=== PATIENT | female | born 1950 | race American Indian/Alaskan Native ===

== ENCOUNTER 2018-12-06 12:45 | Observation (INO) | payer MEDICARE ==
--- NOTE | 2018-12-06 13:15 | Emergency Department Report ---
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 Due to findings the following was ordered: labs, EKG ED Disposition for MSE Condition: Stable
[2018-12-06 13:36] LABS: Basophils % (Auto) 0.6 % (0.0-1.8); Eosinophils # (Auto) 0.1 K/mm3 (0.0-0.4); Eosinophils % (Auto) 1.5 % (0.0-4.3); Hematocrit 32.3 % (30.3-42.9); Hemoglobin 10.2 gm/dl (10.1-14.3); Lymphocytes # (Auto) 0.9 K/mm3 (1.2-5.4); Lymphocytes % (Auto) 14.9 % (13.4-35.0); Mean Corpuscular HGB Conc 32 % (30-34); Mean Corpuscular Volume 95 fl (79-97); Monocytes # (Auto) 0.3 K/mm3 (0.0-0.8); Monocytes % (Auto) 5.6 % (0.0-7.3); Platelet Count 189 K/mm3 (140-440); Red Blood Count 3.42 M/mm3 (3.65-5.03); Red Cell Distribution Width 19.3 % (13.2-15.2)
[2018-12-06 13:59] LABS: Alanine Aminotransferase 14 units/L (7-56); Albumin 3.7 g/dL (3.9-5); BUN/Creatinine Ratio 19; Blood Urea Nitrogen 41 mg/dL (7-17); Calcium 6.7 mg/dL (8.4-10.2); Hemolysis Index 7
[2018-12-06] MEDS ORDERED: MAGNESIUM SULFATE 1 GM in NACL 0.9% 50 ML IV ONE (15:37)
[2018-12-06] MEDS ORDERED: MAGNESIUM SULFATE 2GM/50ML 2 GM/50 ML BAG IV ONE (15:37)
--- NOTE | 2018-12-06 15:38 | Emergency Department Report ---
ED General Adult HPI - General Chief complaint: Recheck/Abnormal Lab/Rx Stated complaint: KIDNEY LEVELS DROPPING PER DR Time Seen by Provider: 12/06/18 13:11 Source: patient, RN notes reviewed Mode of arrival: Ambulatory (patient walks with a walker) Limitations: Other (patient is a poor historian) - History of Present Illness Initial comments: This is a 68-year-old female who is not known to this provider previously, who was sent to the emergency room by her sustainability officer, Dr. Zuluaga, for direct admission. Her past medical history includes reported stroke, and heart disease. The patient has no complaints at this time. In the emergency room, patient found to have a creatinine of 2.2, and is found to be hypomagnesemic, and hypocalcemic. Her aforementioned sustainability officer is contacted, who reiterates that she recommends admission. She reports that her group has attempted outpatient management for the aforementioned patient electrolyte derangement, with no improvement with outpatient therapy. The Hospital physician was contacted, and Dr. Homar Stevens is going to accept the patient to the medical service for new onset renal insufficiency, hypo- magnesium, hypocalcemia. -: unknown Severity scale (0 -10): 0 Quality: other Consistency: other Improves with: other Worsens with: other Associated Symptoms: weakness - Related Data Allergies Allergy/AdvReac Type Severity Reaction Status Date / Time No Known Allergies Allergy Verified 12/06/18 12:46 ED Review of Systems ROS: Stated complaint: KIDNEY LEVELS DROPPING PER DR Other details as noted in HPI Constitutional: denies: fever Eyes: denies: eye discharge ENT: denies: epistaxis Respiratory: denies: cough Cardiovascular: denies: chest pain Gastrointestinal: denies: abdominal pain Genitourinary: denies: dysuria Musculoskeletal: denies: back pain Skin: denies: lesions Neurological: weakness ED Past Medical Hx - Past Medical History Hx CVA: Yes (2017- left-sided weakness) Hx Heart Attack/AMI: Yes Hx Renal Disease: Yes - Surgical History Additional Surgical History: abd? - Social History Smoking Status: Never Smoker Substance Use Type: None ED Physical Exam - General Limitations: Other (patient walks slowly with a walker) General appearance: alert, in no apparent distress - Head Head exam: Present: atraumatic, normocephalic - Eye Eye exam: Present: normal appearance, EOMI. Absent: nystagmus - ENT ENT exam: Present: normal orophraynx, mucous membranes dry, normal external ear exam - Neck Neck exam: Present: normal inspection, full ROM. Absent: tenderness, meningismus - Respiratory Respiratory exam: Present: normal lung sounds bilaterally. Absent: respiratory distress - Cardiovascular Cardiovascular Exam: Present: normal rhythm, bradycardia, normal heart sounds. Absent: tachycardia, irregular rhythm, systolic murmur, diastolic murmur, rubs, gallop - GI/Abdominal GI/Abdominal exam: Present: soft, normal bowel sounds - Extremities Exam Extremities exam: Present: normal inspection, full ROM, other (2+ pulses noted in the bilateral upper, lower extremities. Compartments soft. No long bony tenderness. The pelvis is stable.). Absent: calf tenderness - Back Exam Back exam: Present: normal inspection, full ROM. Absent: tenderness, CVA tenderness (R), paraspinal tenderness, vertebral tenderness - Neurological Exam Neurological exam: Present: alert, other (Extraocular movements intact. Tongue midline. No facial droop. Facial sensation intact to light touch in the V1, V2, V3 distribution bilaterally. 5 and 5 strength in 4 extremities.. Sensation is intact to light touch in 4 extremities.). Absent: motor sensory deficit - Psychiatric Psychiatric exam: Present: normal affect, normal mood - Skin Skin exam: Present: warm, dry, intact, normal color. Absent: rash ED Medical Decision Making - Lab Data Result diagrams: 12/06/18 13:24 12/06/18 13:24 Lab Results 12/06/18 12/06/18 Range/Units 13:24 13:24 WBC 6.0 (4.5-11.0) K/mm3 RBC 3.42 L (3.65-5.03) M/mm3 Hgb 10.2 (10.1-14.3) gm/dl Hct 32.3 (30.3-42.9) % MCV 95 (79-97) fl MCH 30 (28-32) pg MCHC 32 (30-34) % RDW 19.3 H (13.2-15.2) % Plt Count 189 (140-440) K/mm3 Lymph % (Auto) 14.9 (13.4-35.0) % [place] % (Auto) 5.6 (0.0-7.3) % Eos % (Auto) 1.5 (0.0-4.3) % Baso % (Auto) 0.6 (0.0-1.8) % Lymph # 0.9 L (1.2-5.4) K/mm3 [place] # 0.3 (0.0-0.8) K/mm3 Eos # 0.1 (0.0-0.4) K/mm3 Baso # 0.0 (0.0-0.1) K/mm3 Seg Neutrophils % 77.4 H (40.0-70.0) % Seg Neutrophils # 4.6 (1.8-7.7) K/mm3 Sodium 146 H (137-145) mmol/L Potassium 4.4 (3.6-5.0) mmol/L Chloride 117.7 H (98-107) mmol/L Carbon Dioxide 15 L (22-30) mmol/L Anion Gap 18 mmol/L BUN 41 H (7-17) mg/dL Creatinine 2.2 H (0.7-1.2) mg/dL Estimated GFR 27 ml/min BUN/Creatinine Ratio 19 % Glucose 81 (65-100) mg/dL Calcium 6.7 L (8.4-10.2) mg/dL Phosphorus 4.00 (2.5-4.5) mg/dL Magnesium 1.00 L (1.7-2.3) mg/dL Total Bilirubin 0.30 (0.1-1.2) mg/dL AST 16 (5-40) units/L ALT 14 (7-56) units/L Alkaline Phosphatase 76 (35-129) units/L Troponin T < 0.010 (0.00-0.029) ng/mL Total Protein 6.9 (6.3-8.2) g/dL Albumin 3.7 L (3.9-5) g/dL Albumin/Globulin Ratio 1.2 % - EKG Data -: EKG Interpreted by [place] EKG shows normal: sinus rhythm Rate: bradycardia - EKG Data When compared to previous EKG there are: previous EKG unavailable 12/06/18 16:27 This is a sinus bradycardia, with a normal axis, QTC prolonged, low voltage, left ventricular hypertrophy, rate 52 bpm, poor progression, this is an abnormal EKG, this is not consistent with ST elevation myocardial infarction. Critical Care Time: Yes Critical care time in (mins) excluding proc time.: 35 Critical care attestation.: If time is entered above; I have spent that time in minutes in the direct care of this critically ill patient, excluding procedure time. ED Disposition Clinical Impression: Renal insufficiency, Hypomagnesemia, Hypocalcemia Disposition: OP ADMIT IP TO THIS HOSP Is pt being admited?: Yes Condition: Good Referrals: MURALI CASTELLANOS MD [Primary Care Provider] - 3-5 Days
[2018-12-06] MEDS ORDERED: TUMS PO ONE (15:51)
[2018-12-06] MEDS ORDERED: CALCIUM GLUCONATE 1,000 MG in NACL 0.9% 100 ML IV ONE (15:51)
[2018-12-06] MEDS ORDERED: NACL 0.45% 1000 ML 1,000 ML IV SCH (16:00)
[2018-12-06 17:09] LABS: Bacteria,Urine 1+ /HPF (Negative); Bilirubin,Urine NEG (Negative); Blood,Urine NEG (Negative); Color,Urine Yellow (Yellow); Mucus,Urine FEW /HPF; Urobilinogen,Urine < 2.0 mg/dL (<2.0)
--- NOTE | 2018-12-06 19:14 | History and Physical Report ---
History of Present Illness Date of examination: 12/06/18 Date of admission: 12/06/18 16:28 Chief complaint: Generaized weakness.-- Sent by her Attraction Attendant for MONET History of present illness: 68-year-old female was sent to the emergency room by her salt washer, Dr. Zuluaga, for admission for acute Kidney injury and electrolyte abnormalities.Patient is a poor historian and daughter at bedside could not give much history.Pmh of stroke and CAD.Has generalized weakness.No fever or chills.As per Dr Zuluaga patient has MONET and Hypomagnesemia.And Hypocalc emia. Past Medical History Hx CVA: Yes (2017- left-sided weakness) Hx Heart Attack/AMI: Yes Hx Renal Disease: Yes Surgical History Additional Surgical History: abd? Social History Smoking Status: Never Smoker Substance Use Type: None Review of Systems ROS: Stated complaint: KIDNEY LEVELS DROPPING PER Other details as noted in HPI Constitutional: denies: fever Eyes: denies: eye discharge ENT: denies: epistaxis Respiratory: denies: cough Cardiovascular: denies: chest pain Gastrointestinal: denies: abdominal pain Genitourinary: denies: dysuria Musculoskeletal: denies: back pain Skin: denies: lesions Neurological: weakness Medications and Allergies Allergies Allergy/AdvReac Type Severity Reaction Status Date / Time No Known Allergies Allergy Verified 12/06/18 12:46 Home Medications Medication Instructions Recorded Confirmed Last Taken Type ALBUTEROL Inhaler(NF) [VENTOLIN 1 puff PO HS 12/06/18 12/06/18 Unknown History Inhaler(NF)] Albuterol Sulfate [Albuterol 0.63% 0.63 mg IH TID PRN 12/06/18 12/06/18 Unknown History NEBS] Cholecalciferol (Vitamin D3) 50,000 units PO QWEEK 12/06/18 12/06/18 Unknown History [Vitamin D3] Metoprolol Succinate 100 mg PO DAILY 12/06/18 12/06/18 Unknown History Sodium Bicarbonate 1,300 mg PO TID 12/06/18 12/06/18 Unknown History amLODIPine [Norvasc] 5 mg PO DAILY 12/06/18 12/06/18 Unknown History Active Meds: Active Medications Sodium Bicarbonate 75 meq/ (Dextrose) 1,075 mls @ 125 mls/hr IV DIRECT ZELDA Sodium Bicarbonate (Sodium Bicarbonate) 650 mg PO TID ZELDA Exam - Constitutional Vitals: Temp Pulse Resp BP Pulse Ox 48 L 14 165/90 96 12/06/18 17:16 12/06/18 17:16 12/06/18 17:16 12/06/18 17:16 General appearance: Present: no acute distress, well-nourished - EENT Eyes: Present: PERRL ENT: hearing intact, clear oral mucosa - Neck Neck: Present: supple, normal ROM - Respiratory Respiratory effort: normal Respiratory: bilateral: CTA - Cardiovascular Heart rate: 52 Rhythm: regular Heart Sounds: Present: S1 & S2. Absent: rub, click - Extremities Extremities: no ischemia, pulses intact, pulses symmetrical, No edema Peripheral Pulses: within normal limits - Abdominal General gastrointestinal: Present: soft, non-tender, non-distended, normal bowel sounds Female genitourinary: Present: normal - Rectal Rectal Exam: deferred - Integumentary Integumentary: Present: clear, warm, dry - Musculoskeletal Musculoskeletal: gait normal, strength equal bilaterally - Psychiatric Psychiatric: appropriate mood/affect, intact judgment & insight - Neurologic Neurologic: CNII-XII intact, moves all extremities - Allied Health Allied health notes reviewed: nursing, case management Results - Labs CBC & Chem 7: 12/06/18 13:24 12/06/18 13:24 Labs: Laboratory Last Values WBC 6.0 K/mm3 (4.5-11.0) 12/06/18 13:24 RBC 3.42 M/mm3 (3.65-5.03) L 12/06/18 13:24 Hgb 10.2 gm/dl (10.1-14.3) 12/06/18 13:24 Hct 32.3 % (30.3-42.9) 12/06/18 13:24 MCV 95 fl (79-97) 12/06/18 13:24 MCH 30 pg (28-32) 12/06/18 13:24 MCHC 32 % (30-34) 12/06/18 13:24 RDW 19.3 % (13.2-15.2) H 12/06/18 13:24 Plt Count 189 K/mm3 (140-440) 12/06/18 13:24 Lymph % (Auto) 14.9 % (13.4-35.0) 12/06/18 13:24 [place] % (Auto) 5.6 % (0.0-7.3) 12/06/18 13:24 Eos % (Auto) 1.5 % (0.0-4.3) 12/06/18 13:24 Baso % (Auto) 0.6 % (0.0-1.8) 12/06/18 13:24 Lymph # 0.9 K/mm3 (1.2-5.4) L 12/06/18 13:24 [place] # 0.3 K/mm3 (0.0-0.8) 12/06/18 13:24 Eos # 0.1 K/mm3 (0.0-0.4) 12/06/18 13:24 Baso # 0.0 K/mm3 (0.0-0.1) 12/06/18 13:24 Seg Neutrophils % 77.4 % (40.0-70.0) H 12/06/18 13:24 Seg Neutrophils # 4.6 K/mm3 (1.8-7.7) 12/06/18 13:24 Sodium 146 mmol/L (137-145) H 12/06/18 13:24 Potassium 4.4 mmol/L (3.6-5.0) 12/06/18 13:24 Chloride 117.7 mmol/L (98-107) H 12/06/18 13:24 Carbon Dioxide 15 mmol/L (22-30) L 12/06/18 13:24 Anion Gap 18 mmol/L 12/06/18 13:24 BUN 41 mg/dL (7-17) H 12/06/18 13:24 Creatinine 2.2 mg/dL (0.7-1.2) H 12/06/18 13:24 Estimated GFR 27 ml/min 12/06/18 13:24 BUN/Creatinine Ratio 19 % 12/06/18 13:24 Glucose 81 mg/dL (65-100) 12/06/18 13:24 Calcium 6.7 mg/dL (8.4-10.2) L 12/06/18 13:24 Phosphorus 4.00 mg/dL (2.5-4.5) 12/06/18 13:24 Magnesium 1.00 mg/dL (1.7-2.3) L 12/06/18 13:24 Total Bilirubin 0.30 mg/dL (0.1-1.2) 12/06/18 13:24 AST 16 units/L (5-40) 12/06/18 13:24 ALT 14 units/L (7-56) 12/06/18 13:24 Alkaline Phosphatase 76 units/L (35-129) 12/06/18 13:24 Troponin T < 0.010 ng/mL (0.00-0.029) 12/06/18 13:24 Total Protein 6.9 g/dL (6.3-8.2) 12/06/18 13:24 Albumin 3.7 g/dL (3.9-5) L 12/06/18 13:24 Albumin/Globulin Ratio 1.2 % 12/06/18 13:24 Urine Color Yellow (Yellow) 12/06/18 16:47 Urine Turbidity Slightly-cloudy (Clear) 12/06/18 16:47 Urine pH 6.0 (5.0-7.0) 12/06/18 16:47 Ur Specific [place] 1.010 (1.003-1.030) 12/06/18 16:47 Urine Protein 30 mg/dl mg/dL (Negative) 12/06/18 16:47 Urine Glucose (UA) Neg mg/dL (Negative) 12/06/18 16:47 Urine Ketones Neg mg/dL (Negative) 12/06/18 16:47 Urine Blood Neg (Negative) 12/06/18 16:47 Urine Nitrite Neg (Negative) 12/06/18 16:47 Urine Bilirubin Neg (Negative) 12/06/18 16:47 Urine Urobilinogen < 2.0 mg/dL (<2.0) 12/06/18 16:47 Ur Leukocyte Esterase Sm (Negative) 12/06/18 16:47 Urine WBC (Auto) 7.0 /HPF (0.0-6.0) H 12/06/18 16:47 Urine RBC (Auto) 1.0 /HPF (0.0-6.0) 12/06/18 16:47 U Epithel Cells (Auto) < 1.0 /HPF (0-13.0) 12/06/18 16:47 Urine Bacteria (Auto) 1+ /HPF (Negative) 12/06/18 16:47 Urine Mucus Few /HPF 12/06/18 16:47 - Imaging and Cardiology EKG: report reviewed (Sinus Bradycardia 51/min) Assessment and Plan Advance Directives: Yes (Fullcode) VTE prophylaxis?: Chemical Plan of care discussed with patient/family: Yes - Patient Problems (1) MONET (acute kidney injury) Current Visit: Yes Status: Acute Plan to address problem: IV Fluids for now W/u for MONET/CKD Nephrology consulted (2) Hypomagnesemia Current Visit: Yes Status: Acute Plan to address problem: Supplemented (3) Hypocalcemia Current Visit: Yes Status: Acute Plan to address problem: Supplemented (4) Acute hypernatremia Current Visit: Yes Status: Acute Plan to address problem: IV Half NS Check serum and urine Osmolarity (5) Malnutrition Current Visit: Yes Status: Chronic Qualifiers: Malnutrition type: unspecified type Qualified Code(s): E46 - Unspecified protein-calorie malnutrition Plan to address problem: Dietitian consult requested (6) UTI (urinary tract infection) Current Visit: Yes Status: Acute Qualifiers: Urinary tract infection type: acute cystitis Plan to address problem: Initiated on IV Rocephin (7) HTN (hypertension) Current Visit: Yes Status: Chronic Qualifiers: Hypertension type: essential hypertension Qualified Code(s): I10 - Essential (primary) hypertension Plan to address problem: Cont antihypertensives (8) Vitamin D deficiency Current Visit: Yes Status: Acute Plan to address problem: Cont Vitamin D 14378f weekly (9) Physical debility Current Visit: Yes Status: Acute Plan to address problem: PT/OT ordered (10) DVT prophylaxis Current Visit: Yes Status: Acute Plan to address problem: On Heparin and GI prophylaxis
[2018-12-06] MEDS ORDERED: SODIUM BICARBONATE PO SCH (20:00)
[2018-12-06] MEDS ORDERED: NON-FORMULARY (Albuterol Sulfate [Albuterol 0.63% Nebs] 0.63 MG) IH PRN (21:29)
[2018-12-06] MEDS ORDERED: ZOFRAN IV PRN (21:30)
[2018-12-06] MEDS ORDERED: TYLENOL PO PRN (21:30)
[2018-12-06] MEDS ORDERED: MORPHINE IV PRN (21:30)
[2018-12-06] MEDS ORDERED: SODIUM CHLORIDE FLUSH SYRINGE 10 ML IV PRN (21:30)
[2018-12-06] MEDS ORDERED: DILAUDID IV PRN (21:30)
[2018-12-06] MEDS ORDERED: PROVENTIL IH PRN (21:47)
[2018-12-06] MEDS ORDERED: PROAIR IH SCH (22:00)
[2018-12-06] MEDS ORDERED: NACL 0.9% 1000 ML 1,000 ML IV SCH (22:00)
[2018-12-06] MEDS ORDERED: NORVASC PO SCH (22:00)
[2018-12-06] MEDS: SODIUM BICARBONATE 75 MEQ in D5W 1,000 ML IV SCH (22:24)
[2018-12-06] MEDS: TOPROL XL PO SCH (22:24)
[2018-12-06] MEDS: SODIUM CHLORIDE FLUSH SYRINGE 10 ML IV SCH (22:25)
[2018-12-06] MEDS: PERCOCET 5/325 PO PRN (22:32)
[2018-12-06] MEDS: PROVENTIL IH SCH (23:45)
[2018-12-07 01:23] LABS: Bilirubin,Urine NEG (Negative); Blood,Urine MOD (Negative); Color,Urine Yellow (Yellow); Protein,Urine <15 mg/dL mg/dL (Negative); Urobilinogen,Urine < 2.0 mg/dL (<2.0)
[2018-12-07 01:25] LABS: Creatinine,Urine 69.9 mg/dL (0.1-20.0)
[2018-12-07] MEDS ORDERED: MAGNESIUM SULFATE 2GM/50ML 2 GM/50 ML BAG IV ONE ×2 (06:05→10:00)
[2018-12-07 06:57] LABS: Basophils % (Auto) 0.9 % (0.0-1.8); Eosinophils # (Auto) 0.2 K/mm3 (0.0-0.4); Eosinophils % (Auto) 4.3 % (0.0-4.3); Hematocrit 26.8 % (30.3-42.9); Hemoglobin 8.6 gm/dl (10.1-14.3); Lymphocytes # (Auto) 1.1 K/mm3 (1.2-5.4); Lymphocytes % (Auto) 23.4 % (13.4-35.0); Mean Corpuscular HGB Conc 32 % (30-34); Mean Corpuscular Volume 93 fl (79-97); Monocytes # (Auto) 0.3 K/mm3 (0.0-0.8); Monocytes % (Auto) 7.5 % (0.0-7.3); Platelet Count 155 K/mm3 (140-440); Red Blood Count 2.88 M/mm3 (3.65-5.03); Red Cell Distribution Width 18.8 % (13.2-15.2)
[2018-12-07] MEDS ORDERED: NACL 0.45% 500 ML IV SCH (07:00)
[2018-12-07 07:23] LABS: Albumin 3.3 g/dL (3.9-5); Calcium 6.5 mg/dL (8.4-10.2)
[2018-12-07] MEDS ORDERED: SODIUM BICARBONATE 1300 MG PO SCH (08:00)
--- NOTE | 2018-12-07 09:27 | Consultation ---
History of Present Illness - Reason for Consult Consult date: 12/07/18 acute renal failure, metabolic acidosis - History of Present Illness Mrs. Spear is a 68yo with stage III CKD who presented to [facility] for office follow up. Labs were notable for elevated SCr 2.8, Bicarb 14 and Ca 6.7. Patient reports generalized weakness and malaise. She denies fever, chills, nausea, vomiting, SOB, cough. Appetite has been poor and patient w/ little po intake according to daughter. This AM, patient reports that she feels better; weakness/malaise are improved. Past History Past Medical History: other (Hypertension>20years, hemorrhagic CVA in Oct 2016) Past Surgical History: Other (Hip surgery, sinus surgery, tubal ligation, part ial gastrectomy 1985) Social history: lives with family Family history: hypertension Medications and Allergies Allergies Allergy/AdvReac Type Severity Reaction Status Date / Time No Known Allergies Allergy Verified 12/06/18 12:46 Home Medications Medication Instructions Recorded Confirmed Last Taken Type ALBUTEROL Inhaler(NF) [VENTOLIN 1 puff PO HS 12/06/18 12/06/18 Unknown History Inhaler(NF)] Albuterol Sulfate [Albuterol 0.63% 0.63 mg IH TID PRN 12/06/18 12/06/18 Unknown History NEBS] Cholecalciferol (Vitamin D3) 50,000 units PO QWEEK 12/06/18 12/06/18 Unknown History [Vitamin D3] Metoprolol Succinate 100 mg PO DAILY 12/06/18 12/06/18 Unknown History Sodium Bicarbonate 1,300 mg PO TID 12/06/18 12/06/18 Unknown History amLODIPine [Norvasc] 5 mg PO DAILY 12/06/18 12/06/18 Unknown History Active Meds: Active Medications Acetaminophen (Tylenol) 650 mg PO Q4H PRN PRN Reason: Pain MILD(1-3)/Fever >100.5/LOYA Albuterol (Proventil) 2.5 mg IH Q4HRT PRN PRN Reason: Shortness Of Breath Albuterol (Proventil) 2.5 mg IH QHS ZELDA Last Admin: 12/06/18 23:45 Dose: 2.5 mg Documented by: Amlodipine Besylate (Norvasc) 10 mg PO DAILY ZELDA Heparin Sodium (Porcine) (Heparin) 5,000 unit SUB-Q Q12HR [facility] Hydromorphone HCl (Dilaudid) 0.5 mg IV Q3H PRN PRN Reason: Pain , Severe (7-10) Sodium Bicarbonate 75 meq/ (Dextrose) 1,075 mls @ 125 mls/hr IV DIRECT [facility] Last Admin: 12/06/18 22:24 Dose: 125 mls/hr Documented by: Sodium Chloride (Nacl 0.45%) 500 mls @ 100 mls/hr IV DIRECT [facility] Stop: 12/09/18 11:00 Ceftriaxone Sodium (Rocephin/Ns 1 Gm/50 Ml) 1 gm in 50 mls @ 100 mls/hr IV Q24HR [facility]; Protocol Magnesium Sulfate (Magnesium Sulfate 2gm/50ml) 2 gm in 50 mls @ 25 mls/hr IV ONCE ONE Stop: 12/07/18 11:59 Metoprolol Succinate (Toprol Xl) 100 mg PO DAILY [facility] Last Admin: 12/06/18 22:24 Dose: 100 mg Documented by: Miscellaneous Medication (Cholecalciferol (Vitamin D3) [Vitamin D3]) 50,000 units PO QWEEK [facility] Morphine Sulfate (Morphine) 2 mg IV Q4H PRN PRN Reason: Pain, Moderate (4-6) Ondansetron HCl (Zofran) 4 mg IV Q8H PRN PRN Reason: Nausea And Vomiting Oxycodone/Acetaminophen (Percocet 5/325) 1 tab PO Q6H PRN PRN Reason: Pain, Moderate (4-6) Last Admin: 12/06/18 22:32 Dose: 1 tab Documented by: Sodium Bicarbonate (Sodium Bicarbonate) 1,300 mg PO TID [facility] Sodium Chloride (Sodium Chloride Flush Syringe 10 Ml) 10 ml IV BID [facility] Last Admin: 12/06/18 22:25 Dose: 10 ml Documented by: Sodium Chloride (Sodium Chloride Flush Syringe 10 Ml) 10 ml IV PRN PRN PRN Reason: LINE FLUSH Review of Systems All systems: negative Exam - Vital Signs Vital signs: Vital Signs Pulse Resp 63 13 12/06/18 15:39 12/06/18 15:39 - General Appearance General appearance: frail EENT: ATNC Respiratory: Clear to Ascultation Heart: regular, S1S2 Gastrointestinal: Absent: tenderness, distended Integumentary: warm and dry Neurologic: no focal deficit Psychiatric: cooperative Results - Lab Results 12/07/18 06:38 12/07/18 06:38 Most recent lab results Calcium 6.5 mg/dL (8.4-10.2) L 12/07/18 06:38 Phosphorus 4.00 mg/dL (2.5-4.5) 12/06/18 13:24 Magnesium 1.60 mg/dL (1.7-2.3) L 12/07/18 06:38 Urine Creatinine 69.9 mg/dL (0.1-20.0) H 12/07/18 01:04 Urine Sodium 97 mmol/L 12/07/18 01:04 Assessment and Plan Impression: * Acute kidney injury likely secondary to volume depletion/prerenal on chronic kidney disease --Baseline SCr 1.5-1.7mg/dL * UTI * Anemia secondary to CKD * Metabolic acidosis * Hypocalcemia * Hypomagnesemia * Malnutrition Plan: * Continue IVF * Abx per primary team * Continue NaBicarb tablets * Replete lytes prn * Avoid potential nephrotoxins * Dose medications for renal function * Anticipate possible d/c in next 24h
[2018-12-07] MEDS ORDERED: CALCIUM GLUCONATE 1,000 MG in NACL 0.9% 100 ML IV ONE (10:00)
[2018-12-07] MEDS: SODIUM BICARBONATE PO SCH ×3 (10:25→20:06)
[2018-12-07] MEDS: HEPARIN SUB-Q SCH ×2 (10:26→21:50)
[2018-12-07] MEDS: ROCEPHIN/NS 1 GM/50 ML 1 GM/50 ML BAG IV SCH (10:26)
[2018-12-07] MEDS: SODIUM CHLORIDE FLUSH SYRINGE 10 ML IV SCH ×2 (10:26→21:50)
[2018-12-07] MEDS: TOPROL XL PO SCH (10:27)
[2018-12-07] MEDS: NORVASC PO SCH (10:35)
--- NOTE | 2018-12-07 14:55 | Progress Note ---
Assessment and Plan / MONET (acute kidney injury) on possible CKD IV Fluids for now W/u for MONET/CKD Nephrology consulted / Hypomagnesemia cont to Supplement / Hypocalcemia Supplement and monitor /Acute hypernatremia resolved with fluid Check serum and urine Osmolarity / Malnutrition Dietitian consult requested / UTI (urinary tract infection) Initiated on IV Rocephin / HTN (hypertension) Cont antihypertensives / Vitamin D deficiency Cont Vitamin D 40543y weekly / Physical debility PT/OT ordered / DVT prophylaxis On Heparin Subjective Date of service: 12/07/18 Interval history: Patient seen and examined Denies any chest pain or SOB, tolerating diet Objective - Constitutional Vitals: Vital Signs - 12hr 12/07/18 12/07/18 03:21 08:10 Temperature 97.9 F 97.8 F Pulse Rate 54 L 51 L Respiratory 20 20 Rate Blood Pressure 110/74 125/82 O2 Sat by Pulse 100 100 Oximetry General appearance: Present: no acute distress - EENT Eyes: PERRL, EOM intact ENT: hearing intact, clear oral mucosa Ears: bilateral: normal - Neck Neck: supple, normal ROM - Respiratory Respiratory effort: normal Respiratory: bilateral: CTA - Cardiovascular Rhythm: regular Heart Sounds: Present: S1 & S2. Absent: gallop, rub Extremities: pulses intact, No edema, normal color, Full ROM - Gastrointestinal General gastrointestinal: Present: soft, non-tender, non-distended, normal bowel sounds - Integumentary Integumentary: clear, warm, dry - Musculoskeletal Musculoskeletal: 1, strength equal bilaterally - Neurologic Neurologic: moves all extremities - Psychiatric Psychiatric: memory intact, appropriate mood/affect, intact judgment & insight - Labs CBC & Chem 7: 12/07/18 06:38 12/08/18 05:50 Labs: Abnormal lab results 12/06/18 12/07/18 12/07/18 Range/Units 16:47 01:04 01:04 RBC (3.65-5.03) M/mm3 Hgb (10.1-14.3) gm/dl Hct (30.3-42.9) % RDW (13.2-15.2) % [place] % (Auto) (0.0-7.3) % Lymph # (1.2-5.4) K/mm3 Chloride (98-107) mmol/L Carbon Dioxide (22-30) mmol/L BUN (7-17) mg/dL Creatinine (0.7-1.2) mg/dL Calcium (8.4-10.2) mg/dL Magnesium (1.7-2.3) mg/dL Total Protein (6.3-8.2) g/dL Albumin (3.9-5) g/dL PTH Intact (15-65) pg/mL Urine WBC (Auto) 7.0 H 12.0 H (0.0-6.0) /HPF Urine Creatinine 69.9 H (0.1-20.0) mg/dL 12/07/18 12/07/18 12/07/18 Range/Units 06:38 06:38 06:38 RBC 2.88 L (3.65-5.03) M/mm3 Hgb 8.6 L (10.1-14.3) gm/dl Hct 26.8 L (30.3-42.9) % RDW 18.8 H (13.2-15.2) % [place] % (Auto) 7.5 H (0.0-7.3) % Lymph # 1.1 L (1.2-5.4) K/mm3 Chloride 116.5 H (98-107) mmol/L Carbon Dioxide 16 L (22-30) mmol/L BUN 44 H (7-17) mg/dL Creatinine 2.2 H (0.7-1.2) mg/dL Calcium 6.5 L (8.4-10.2) mg/dL Magnesium 1.60 L (1.7-2.3) mg/dL Total Protein 5.9 L (6.3-8.2) g/dL Albumin 3.3 L (3.9-5) g/dL PTH Intact (15-65) pg/mL Urine WBC (Auto) (0.0-6.0) /HPF Urine Creatinine (0.1-20.0) mg/dL 12/07/18 Range/Units 06:38 RBC (3.65-5.03) M/mm3 Hgb (10.1-14.3) gm/dl Hct (30.3-42.9) % RDW (13.2-15.2) % [place] % (Auto) (0.0-7.3) % Lymph # (1.2-5.4) K/mm3 Chloride (98-107) mmol/L Carbon Dioxide (22-30) mmol/L BUN (7-17) mg/dL Creatinine (0.7-1.2) mg/dL Calcium (8.4-10.2) mg/dL Magnesium (1.7-2.3) mg/dL Total Protein (6.3-8.2) g/dL Albumin (3.9-5) g/dL PTH Intact 530.3 H (15-65) pg/mL Urine WBC (Auto) (0.0-6.0) /HPF Urine Creatinine (0.1-20.0) mg/dL
[2018-12-07] MEDS: SODIUM BICARBONATE 75 MEQ in D5W 1,000 ML IV SCH (17:48)
[2018-12-07] MEDS: PERCOCET 5/325 PO PRN (20:05)
[2018-12-07] MEDS: PROVENTIL IH SCH ×2 (20:51→22:00)
[2018-12-08] MEDS: SODIUM BICARBONATE 75 MEQ in D5W 1,000 ML IV SCH (05:33)
[2018-12-08 06:34] LABS: Calcium 6.9 mg/dL (8.4-10.2)
[2018-12-08 08:19] VITALS: BP 124/65
[2018-12-08] MEDS: SODIUM BICARBONATE PO SCH ×2 (08:33→14:35)
[2018-12-08] MEDS: TOPROL XL PO SCH (09:12)
[2018-12-08] MEDS: NORVASC PO SCH (09:13)
[2018-12-08] MEDS: SODIUM CHLORIDE FLUSH SYRINGE 10 ML IV SCH (09:15)
[2018-12-08] MEDS: ROCEPHIN/NS 1 GM/50 ML 1 GM/50 ML BAG IV SCH (09:23)
[2018-12-08] MEDS: HEPARIN SUB-Q SCH (09:23)
--- NOTE | 2018-12-08 11:14 | Progress Note ---
Assessment and Plan Impression: * Acute kidney injury likely secondary to volume depletion/prerenal on chronic kidney disease --Baseline SCr 1.5-1.7mg/dL * UTI * Anemia secondary to CKD * Metabolic acidosis * Hypocalcemia * Hypomagnesemia * Malnutrition Plan: * Will d/c IVF * Abx per primary team * Start Calcitriol * Continue NaBicarb tablets * Replete lytes prn * Avoid potential nephrotoxins * Dose medications for renal function * Stable for d/c on current medications from a renal standpoint * Note PT recommendations - "If unable to go home with 24hr. family suppo rt,HHS/PT,then SNF is recommend" Subjective Date of service: 12/08/18 Objective - Vital Signs Vital signs: Vital Signs - 12hr 12/08/18 12/08/18 12/08/18 00:06 04:37 08:17 Temperature 98.5 F 97.7 F 98.0 F Pulse Rate 70 63 60 Respiratory 18 18 14 Rate Blood Pressure 146/91 155/102 124/65 O2 Sat by Pulse 100 100 98 Oximetry 12/08/18 12/08/18 09:12 09:13 Temperature Pulse Rate 60 60 Respiratory Rate Blood Pressure 124/65 124/65 O2 Sat by Pulse Oximetry - Lab 12/07/18 06:38 12/08/18 05:50 Most recent lab results Calcium 6.9 mg/dL (8.4-10.2) L 12/08/18 05:50 Phosphorus 4.00 mg/dL (2.5-4.5) 12/06/18 13:24 Magnesium 1.90 mg/dL (1.7-2.3) 12/08/18 05:50 Urine Creatinine 69.9 mg/dL (0.1-20.0) H 12/07/18 01:04 Urine Sodium 97 mmol/L 12/07/18 01:04 Medications & Allergies - Medications Allergies/Adverse Reactions: Allergies No Known Allergies Allergy (Verified 12/06/18 12:46) Home Medications: Home Medications Medication Instructions Recorded Confirmed Last Taken Type ALBUTEROL Inhaler(NF) [VENTOLIN 1 puff PO HS 12/06/18 12/06/18 Unknown History Inhaler(NF)] Albuterol Sulfate [Albuterol 0.63% 0.63 mg IH TID PRN 12/06/18 12/06/18 Unknown History NEBS] Cholecalciferol (Vitamin D3) 50,000 units PO QWEEK 12/06/18 12/06/18 Unknown History [Vitamin D3] Metoprolol Succinate 100 mg PO DAILY 12/06/18 12/06/18 Unknown History Sodium Bicarbonate 1,300 mg PO TID 12/06/18 12/06/18 Unknown History amLODIPine [Norvasc] 5 mg PO DAILY 12/06/18 12/06/18 Unknown History Active Medications: Generic Name Dose Route Start Last Admin Trade Name Freq PRN Reason Stop Dose Admin Acetaminophen 650 mg 12/06/18 21:30 Tylenol PO Q4H PRN Pain MILD(1-3)/Fever >100.5/LOYA Albuterol 2.5 mg 12/06/18 21:47 Proventil IH Q4HRT PRN Shortness Of Breath Albuterol 2.5 mg 12/06/18 22:00 12/07/18 22:00 Proventil IH Not Given QHS ZELDA Amlodipine Besylate 10 mg 12/07/18 08:00 12/08/18 09:13 Norvasc PO 10 mg DAILY ZELDA Administration Ergocalciferol 50,000 unit 12/13/18 10:00 Vitamin D2 PO Mo@1000 ZELDA Heparin Sodium (Porcine) 5,000 unit 12/07/18 10:00 12/08/18 09:23 Heparin SUB-Q 5,000 unit Q12HR ZELDA Administration Hydromorphone HCl 0.5 mg 12/06/18 21:30 Dilaudid IV Q3H PRN Pain , Severe (7-10) Sodium Bicarbonate 75 meq/ 1,075 mls @ 125 mls/hr 12/06/18 19:00 12/08/18 05:33 Dextrose IV 125 mls/hr DIRECT ZELDA Administration Ceftriaxone Sodium 1 gm in 50 mls @ 100 mls/hr 12/07/18 10:00 12/08/18 09:23 Rocephin/Ns 1 Gm/50 Ml IV 100 mls/hr Q24HR ZELDA Administration Protocol Metoprolol Succinate 100 mg 12/06/18 22:00 12/08/18 09:12 Toprol Xl PO 100 mg DAILY ZELDA Administration Miscellaneous Medication 50,000 units 12/13/18 10:00 Cholecalciferol (Vitamin D3) [Vitamin D3] PO Mo ZELDA Morphine Sulfate 2 mg 12/06/18 21:30 Morphine IV Q4H PRN Pain, Moderate (4-6) Ondansetron HCl 4 mg 12/06/18 21:30 Zofran IV Q8H PRN Nausea And Vomiting Oxycodone/Acetaminophen 1 tab 12/06/18 21:30 12/07/18 20:05 Percocet 5/325 PO 1 tab Q6H PRN Administration Pain, Moderate (4-6) Sodium Bicarbonate 1,300 mg 12/07/18 08:00 12/08/18 08:33 Sodium Bicarbonate PO 1,300 mg TID ZELDA Administration Sodium Chloride 10 ml 12/06/18 22:00 12/08/18 09:15 Sodium Chloride Flush Syringe 10 Ml IV 10 ml BID ZELDA Administration Sodium Chloride 10 ml 12/06/18 21:30 Sodium Chloride Flush Syringe 10 Ml IV PRN PRN LINE FLUSH
--- NOTE | 2018-12-08 12:43 | Discharge Summary ---
Providers - Providers Date of Admission: 12/06/18 16:28 Date of discharge: 12/08/18 Attending physician: BEBO GERMAN 12/06/18 15:51 Consult to Physician [CONS] Urgent Comment: Consulting Provider: SARAH ZULUAGA Physician Instructions: Reason For Exam: monet 12/07/18 06:00 Physical Therapy Evaluation and Treat [CONS] Routine Comment: Reason For Exam: debility 12/07/18 06:06 Consult to Dietitian/Nutrition [CONS] Routine Physician Instructions: Reason For Exam: Malnutrition Reason for Consult: Nutrition Recommendations Reason for Consult: Pt needs oral supplement Primary care physician: ANNALISE RIVERA Hospitalization Condition: Good Hospital course: 68-year-old female was sent to the emergency room by her head of partner development, Dr. Zuluaga, for admission for acute Kidney injury and electrolyte abnormalities. As per Dr Zuluaga patient has MONET, Hypomagnesemia, Hypocalcemia. She was admitted to hospital, placed on iv fluid, electrolytes replaced. Her renal function improved, she was then discharged home in stable condition. 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 PT recommended home health with 24/7 care or SNF. CM spoke to patient and daughter, they both agreed for home health services and refused SNF. / DVT prophylaxis On Heparin Physical exam: General appearance: Present: no acute distress - EENT Eyes: PERRL, EOM intact ENT: hearing intact, clear oral mucosa Ears: bilateral: normal - Neck Neck: supple, normal ROM - Respiratory Respiratory effort: normal Respiratory: bilateral: CTA - Cardiovascular Rhythm: regular Heart Sounds: Present: S1 & S2. Absent: gallop, rub Extremities: pulses intact, No edema, normal color, Full ROM - Gastrointestinal General gastrointestinal: Present: soft, non-tender, non-distended, normal bowel sounds - Integumentary Integumentary: clear, warm, dry - Musculoskeletal Musculoskeletal: 1, strength equal bilaterally - Neurologic Neurologic: moves all extremities - Psychiatric Psychiatric: memory intact, appropriate mood/affect, intact judgment & insight Disposition: [id number] HOME UNDER HOME [facility] Time spent for discharge: 34 minutes Core Measure Documentation - Palliative Care Palliative Care/ Comfort Measures: Not Applicable - Core Measures Any of the following diagnoses?: none Exam - Constitutional Vitals: Temp Pulse Resp BP Pulse Ox 98.0 F 60 19 124/65 99 12/08/18 08:17 12/08/18 10:00 12/08/18 10:00 12/08/18 09:13 12/08/18 10:00 Plan Activity: other (up with roller walker) Weight Bearing Status: Non-Weight Bearing Diet: renal Special Instructions: other (need 16/03 family support) Durable Medical Equipment Needed Upon Discharge: Bedside Commode Additional Instructions: Nephro three times a day with meal [facility] [Referring] - 3-5 Days Prescriptions: Aspirin EC [Aspirin Enteric Coated TAB] 81 mg PO QDAY #30 tablet. amLODIPine [Norvasc] 10 mg PO DAILY #30 tablet Calcitriol [Rocaltrol] 0.25 mcg PO QDAY #30 capsule
[2018-12-08] MEDS ORDERED: ROCALTROL PO SCH (14:00)
[2018-12-13] MEDS ORDERED: CHOLECALCIFEROL 50000 UNIT PO SCH (10:00)
[2018-12-13] MEDS ORDERED: VITAMIN D2 PO SCH (10:00)
== END 2018-12-08 17:17 | disposition home health service (06) ==
LOC: ED 12:45 → 4A 16:28
PROVIDERS: ADMIT Internal Medicine; ATTEND Internal Medicine
DX: N17.9 Acute kidney failure, unspecified (principal); E83.42 Hypomagnesemia; E83.51 Hypocalcemia; E87.1 Hypo-osmolality and hyponatremia; E46 Unspecified protein-calorie malnutrition; N39.0 Urinary tract infection, site not specified; I10 Essential (primary) hypertension; E55.9 Vitamin D deficiency, unspecified; R53.81 Other malaise
CPT/HCPCS: 36415; 80048; 80053; 81001; 82330; 82570; 83036; 83735; 83930; 83935; 83970; 84100; 84300; 84484; 85025; 93005; 93010; 94640; 96365; 96366; 96367; 96368; 96372; 96375; 96376; 97163; 99291; G0378; J0610; J0696; J1644; J3475; J7030; J7070